=== PATIENT | male | born 1965 | race Caucasian/White ===

== ENCOUNTER 2017-07-22 15:44 | Emergency (ER) | payer OTHER ==
[2017-07-22 15:56] VITALS: BP 128/75; PULSE 76; RESP 16; TEMP 98.1; O2SAT 96
[2017-07-22] MEDS ORDERED: TDAP ADULT 0.5 ML INJ (BOOSTRIX) IM ONE (15:59)
--- NOTE | 2017-07-22 16:04 | EDPHY ---
H & P Stated Complaint: Skin removed from R 2nd finger vs kim stand Time Seen by Provider: 07/22/17 15:58 HPI/ROS: CHIEF COMPLAINT: Laceration HISTORY OF PRESENT ILLNESS: The patient is a 52-year-old man who was working with a telescoping microphone stand. The lock was broken and the stand telescoped quickly and pinched his finger. He has a small avulsion/laceration to his right index finger over the fat pad. No other injuries. 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 REVIEW OF SYSTEMS: Constitutional: denies: chills, fever, recent illness, recent injury EENTM: denies: blurred vision, double vision, nose congestion Respiratory: denies: cough, shortness of breath Cardiac: denies: chest pain, irregular heart rate, lightheadedness, palpitations Gastrointestinal/Abdominal: denies: abdominal pain, diarrhea, nausea, vomiting, blood streaked stools Genitourinary: denies: dysuria, frequency, hematuria, pain Musculoskeletal: denies: joint pain, muscle pain Skin: See HPI Neurological: denies: headache, numbness, paresthesia, tingling, dizziness, weakness Hematologic/Lymphatic: denies: blood clots, easy bleeding, easy bruising Immunologic/allergic: denies: HIV/AIDS, transplant EXAM: GENERAL: Well-appearing, well-nourished and in no acute distress. HEAD: Atraumatic, normocephalic. EYES: Pupils equal round and reactive to light, extraocular movements intact, sclera anicteric, conjunctiva are normal. ENT: TMs normal, nares patent, oropharynx clear without exudates. Moist mucous membranes. NECK: Normal range of motion, supple without lymphadenopathy or JVD. LUNGS: Breath sounds clear to auscultation bilaterally and equal. No wheezes rales or rhonchi. HEART: Regular rate and rhythm without murmurs, rubs or gallops. ABDOMEN: Soft, nontender, normoactive bowel sounds. No guarding, no rebound. No masses appreciated. BACK: No CVA tenderness, no spinal tenderness, step-offs or deformities EXTREMITIES: Normal range of motion, no pitting or edema. No clubbing or cyanosis. NEUROLOGICAL: Cranial nerves II through XII grossly intact. Normal speech, normal gait. 02/07 strength, normal movement in all extremities, normal sensation PSYCH: Normal mood, normal affect. SKIN: Patient has a 1 x 0.5 cm avulsion to the fat pad of his right index finger over the distal phalanx. No nail bed involvement. No crush injury. No motion and sensation. Normal capillary refill. Source: Patient - Personal History Current Tetanus/Diphtheria Vaccine: No Current Tetanus Diphtheria and Acellular Pertussis (TDAP): No Tetanus Vaccine Date: 2007 - Medical/Surgical History Hx Asthma: No Hx Chronic Respiratory Disease: No Hx Diabetes: No Hx Cardiac Disease: No Hx Renal Disease: No Hx Cirrhosis: No Hx Alcoholism: No Hx HIV/AIDS: No Hx Splenectomy or Spleen Trauma: No Other PMH: Hemorrhagic stroke, HTN-no longer on meds, Septoplasty. - Family History Significant Family History: No pertinent family hx - Social History Smoking Status: Never smoked Alcohol Use: Sober Drug Use: None Constitutional: Initial Vital Signs Temperature (C) 36.7 C 07/22/17 15:45 Heart Rate 76 07/22/17 15:45 Respiratory Rate 16 07/22/17 15:45 Blood Pressure 128/75 H 07/22/17 15:45 O2 Sat (%) 96 07/22/17 15:45 O2 Delivery Mode Room Air Allergies/Adverse Reactions: aspirin [Aspirin] Allergy (Severe, Verified 07/22/17 15:58) Anaphylaxis ibuprofen [Ibuprofen] Allergy (Severe, Verified 07/22/17 15:58) Anaphylaxis Home Medications: Medication Instructions Recorded NK [No Known Home Meds] 07/22/17 Medical Decision Making ED Course/Re-evaluation: The patient has an avulsion and has no skin to suture together. He was cleaned and dressed with Surgicel and sterile dressing. We discussed continued treatment and dressing changes at home. The patient's tetanus is updated Differential Diagnosis: Partial list of the Differential diagnosis considered include but were not limited to; laceration, avulsion and although unlikely based on the history and physical exam, I also considered nail bed injury, fracture, infection. I discussed these differential diagnoses and the plan with the patient as well as the usual and expected course. The patient understands that the diagnosis is provisional and that in medicine we are not always correct and that further workup is often warranted. Usual and customary warnings were given. All of the patient's questions were answered. The patient was instructed to return to the emergency department should the symptoms at all worsen or return, otherwise to followup with the physician as we discussed. - Data Points Medications Given: Discontinued Medications Diphtheria/Tetanus/Acell Pertussis (Boostrix) 0.5 ml IM .ONCE ONE Stop: 07/22/17 16:00 Last Admin: 07/22/17 16:04 Dose: 0.5 ml Departure - Departure Disposition: Home, Routine, Self-Care Clinical Impression: Laceration Condition: Fair Instructions: Laceration (ED) Referrals: Isabel Sosa MD [Primary Care Provider] - As per Instructions
== END 2017-07-22 16:16 | disposition home or self-care (01) ==
LOC: CED 15:44
DX: S61.210A Laceration without foreign body of right index finger without damage to nail, initial encounter (principal); I10 Essential (primary) hypertension; Z23 Encounter for immunization; W23.1XXA Caught, crushed, jammed, or pinched between stationary objects, initial encounter; Y92.69 Other specified industrial and construction area as the place of occurrence of the external cause; Y99.0 Civilian activity done for income or pay; Y93.89 Activity, other specified